=== PATIENT | female | born 1950 | race Caucasian/White ===

== ENCOUNTER 2019-09-04 09:43 | Day surgery (SDC) | payer MEDICARE, BC ==
[~2019-09-04] VITALS: Ht 165.1 cm; Wt 101.6 kg
[2019-09-04] VITALS (7 sets, daily range): BP systolic 112–140; BP diastolic 51–68
--- NOTE | 2019-09-04 06:38 | Anethesia Preoperative Eval ---
Anesthesia Pre-op PMH/ROS General Date of Evaluation: Sep 04, 2019 Time of Evaluation: 06:38 Anesthesiologist: poornima ASA Score: ASA 3 Mallampati Score Class I : Soft palate, uvula, fauces, pillars visible Class II: Soft palate, uvula, fauces visible Class III: Soft palate, base of uvula visible Class IV: Only hard plate visible Mallampati Classification: Class II Surgeon: carrie Diagnosis: anemia, vomiting Surgical Procedure: egd/colonoscopy Anesthesia History: none Family History: no anesthesia problems Allergies: Coded Allergies: No Known Allergies (Verified Allergy, Unknown, 02/07/10) Medications: see eMAR Patient NPO?: Yes Past Medical History Gastrointestinal/Genitourinary: Reports: GERD, other - uti Neurologic/Psychiatric: Reports: depression/anxiety Endocrine: Reports: DM HEENT: Reports: cataract (L), cataract (R) Musculoskeletal/Integumentary: Reports: other - charcot feet bilateral Anesthesia Pre-op Phys. Exam Physician Exam Last Vital Signs Date Time Temp Pulse Resp B/P (MAP) Pulse Ox O2 Delivery O2 Flow Rate FiO2 09/04/19 10:52 Room Air 09/04/19 10:49 97.5 76 18 140/61 100 Constitutional: NAD Neurologic: CN 2-12 intact Cardiovascular: RRR Respiratory: CTA Gastrointestinal: S/NT/ND Airway Exam Mallampati Score: Class II MO: limited Neck: flexible TMD: 2fb ROM: limited Teeth: other - dental implants upper/lower Anesthesia Pre-op A/P Labs Accucheck 96 Risk Assessment & Plan Assessment: asa3 Plan: mac Status Change Before Surgery: No Pre-Antibiotics Drug: Sandra Lin MD Sep 04, 2019 06:38
[~2019-09-04 09:43] MED LIST: Atropine Inj 1mg/10ml Syr IV PRN; DiphenhydrAMINE 50mg/ml Inj IVP PRN; LR 1000ml 1,000 ML IVLG SCH; Midazolam 2mg/2ml Inj IVP PRN; fentaNYL 100 mcg/2 mL IV PRN
[2019-09-04] MEDS ORDERED: LR 1000ml 1,000 ML IVLG SCH (10:24)
[2019-09-04] MEDS ORDERED: METFORMIN HCL750 MG ORAL (10:41)
[2019-09-04] MEDS ORDERED: METOPROLOL TART25 MG ORAL (10:41)
[2019-09-04] MEDS ORDERED: ROPINIROLE HCL1 MG PO (10:41)
[2019-09-04] MEDS ORDERED: CYMBALTA60 MG ORAL (10:41)
[2019-09-04] MEDS ORDERED: JANUVIA100 MG ORAL (10:41)
[2019-09-04] MEDS ORDERED: CRESTOR40 MG ORAL (10:41)
[2019-09-04] MEDS ORDERED: ROPINIROLE HC0.25 MG PO (10:41)
[2019-09-04] MEDS ORDERED: VESICARE5 MG ORAL (10:41)
[2019-09-04] MEDS ORDERED: OMEPRAZOLE40 M1 ORAL (10:41)
[2019-09-04] MEDS ORDERED: CYMBALTA30 MG ORAL (10:41)
[2019-09-04] MEDS ORDERED: MYRBETRIQ50 MG PO (10:41)
[2019-09-04] MEDS ORDERED: TRAMADOL HCL50 MG ORAL (10:41)
--- NOTE | 2019-09-04 11:00 | NUR ---
Patient claimed " had about total of 8 oz of water since midnight ". Michoacano Knight RN in the GI lab was notified.
[2019-09-04] MEDS ORDERED: Lidocaine 1% MPF 10mg/ml 5ml ONE (11:30)
[2019-09-04] MEDS ORDERED: Propofol 200mg/20ml IV ONE (11:30)
[2019-09-04] MEDS ORDERED: LR 1000ml ONE (11:30)
--- NOTE | 2019-09-04 11:40 | Short Stay Surgery H&P ---
History of Present Illness History of Present Illness Chief Complaint see typed H&P HPI Margarita Dobbs is a 68 year old female who was admitted on for Anemia Patient History Allergies: Coded Allergies: No Known Allergies (Verified Allergy, Unknown, 02/07/10) Medication History Scheduled Duloxetine Hcl* (Cymbalta*), 90 MG ORAL DAILY, (Reported) Duloxetine Hcl* (Cymbalta*), 90 MG ORAL DAILY, (Reported) Metformin Hcl (Metformin Hcl Er), 750 MG ORAL BID, (Reported) Metoprolol Tartrate* (Metoprolol Tartrate*), 25 MG ORAL EVERY 12 HOURS, ( Reported) Mirabegron (Myrbetriq), 50 MG PO da, (Reported) Omeprazole (Omeprazole), 40 MG ORAL BID, (Reported) Ropinirole Hcl* (Ropinirole Hcl*), 0.25 MG PO TID, (Reported) Ropinirole Hcl* (Ropinirole Hcl*), 1 MG PO DA, (Reported) Rosuvastatin Calcium* (Crestor*), 90 MG ORAL DAILY, (Reported) Sitagliptin (Januvia), 100 MG ORAL DAILY, (Reported) Solifenacin Succinate* (Vesicare*), 5 MG ORAL DAILY, (Reported) Scheduled PRN Tramadol Hcl* (Ultram*), 50 MG ORAL BID PRN for For Pain, (Reported) Physical Exam Vital Signs Last Vital Signs Date Time Temp Pulse Resp B/P (MAP) Pulse Ox O2 Delivery O2 Flow Rate FiO2 09/04/19 10:52 Room Air 09/04/19 10:49 97.5 76 18 140/61 100 Plan Attestation Are the patient's medical conditions optimized for surgery? Sony Pond MD Sep 04, 2019 11:40
--- NOTE | 2019-09-04 11:42 | Pre-Procedure Note/Attestation ---
Pre-Procedure Note/Attestation Complete Prior to Procedure Planned Procedure: not applicable Procedure Narrative: Heme (+) stools Indications for Procedure Pre-Operative Diagnosis: EGD/Colon Attestation I attest that I discussed the nature of the procedure; its benefits; risks and complications; and alternatives (and the risks and benefits of such alternatives ), prior to the procedure, with the patient (or the patient's legal airport representative). I attest that, if there was a reasonable possibility of needing a blood transfusion, the patient (or the patient's legal airport representative) was given the [facility] standardized written summary, pursuant to the Alfie Candace Blood Safety Act ([place] Health and Safety Code # 1645, as amended). I attest that I re-evaluated the patient just prior to the surgery and that there has been no change in the patient's H&P, except as documented below: Sony Pond MD Sep 04, 2019 11:42
--- NOTE | 2019-09-04 13:09 | Immediate Post-Op Evaluation ---
Immediate Post-Op Evalulation Immediate Post-Op Evalulation Procedure: egd/colonoscopy w/bx Date of Evaluation: Sep 04, 2019 Time of Evaluation: 12:49 IV Fluids: 500ml lr Blood Products: none Estimated Blood Loss: negligible Blood Pressure Systolic: 136 Blood Pressure Diastolic: 59 Pulse Rate: 74 Respiratory Rate: 18 O2 Sat by Pulse Oximetry: 100 Temperature (Fahrenheit): 97.5 Pain Score (1-10): 0 Nausea: No Vomiting: No Complications none Patient Status: awake, reacts, patent Hydration Status: adequate Drug: Sandra Lin MD Sep 04, 2019 13:09
--- NOTE | 2019-09-04 13:10 | 48 Hour Post Anesthesia Eval ---
Post Anesthesia Evaluation Procedure: egd/colonoscopy w/bx Date of Evaluation: Sep 04, 2019 Time of Evaluation: 12:51 Blood Pressure Systolic: 140 0: 61 Pulse Rate: 71 Respiratory Rate: 18 Temperature (Fahrenheit): 97.5 O2 Sat by Pulse Oximetry: 100 Airway: patent Nausea: No Vomiting: No Pain Intensity: 0 Hydration Status: adequate Cardiopulmonary Status: stable Mental Status/LOC: patient returned to baseline Post-Anesthesia Complications: none Follow-up care needed: N/A Sandra Calderon MD Sep 04, 2019 13:10
[2019-09-04] MEDS ORDERED: TRESIBA100 UNIT/1 SQ (14:15)
[2019-09-04] MEDS ORDERED: NOVOLOG100 UNIT/4 SQ (14:18)
--- NOTE | 2019-09-05 12:00 | Operative Note - Dictated ---
DATE OF OPERATION: 09/04/2019 GASTROENTEROLOGY PROCEDURE REPORT PROCEDURE: Upper gastrointestinal endoscopy with biopsy as well as colonoscopy. SURGEON: Sony Pond M.D. ANESTHESIA: Please see the separate anesthesiologist notes for details. PRE-ENDOSCOPIC DIAGNOSIS: Heme-positive stools. POST-ENDOSCOPIC DIAGNOSES: 1. Mild gastroesophageal reflux disease with reflux-related erosions in the lower esophagus. 2. Status post sleeve gastrectomy procedure is anticipated. 3. Mild erythema of the antrum and remaining stomach, status post biopsy. 4. Normal terminal ileum about 5 cm. 5. Suboptimal colonic preparation, but visualization was adequate to rule out large mass lesions. 6. Mild internal hemorrhoids. 7. No colonic polyps identified. DESCRIPTION OF PROCEDURE: The procedure, its risks, indications, alternatives, and possible complications were explained to the patient and informed consent was obtained. The patient was then sedated in the left lateral decubitus position. A diagnostic upper endoscope was introduced through the oropharynx and advanced to the duodenum without difficulty. The endoscope was then gradually withdrawn. Then, the mucosa examined carefully. The endoscope was then removed. The colonoscope was introduced into the rectum and advanced to the terminal ileum without difficulty. The colonoscope was then gradually withdrawn and the mucosa examined carefully. Examination was concluded with the retroflex view of the rectum. The colonoscope was removed and the patient was sent to recovery in good condition. FINDINGS: As listed above. ASSESSMENT: There were no ulcers or malignancies identified on this examination. in the lower or upper gastrointestinal tract. The heme-positive stools may potentially be either due to hemorrhage or due to gastroesophageal reflux. The patient will be seen and followup and a repeat stool occult blood can be done as an outpatient. In the meantime, the patient should be placed on reflux precautions and acid blockade regimen. RECOMMENDATIONS: 1. Continue omeprazole 40 mg p.o. daily. 2. Reflux precautions. 3. Follow up biopsy results. 4. Outpatient followup. Thank you for asking me to participate in the care of this patient. Sony Pond M.D. DR: WINIFRED JOB#: [id number] CC: Dajuan Mirza M.D.
[2019-09-08] MEDS ORDERED: CEPHALEXIN500 MG ORAL (18:20)
[2019-09-08] MEDS ORDERED: DOXYCYCLINE MO100 MG ORAL (18:20)
== END 2019-09-04 13:55 | disposition home or self-care (01) ==
LOC: GAS 09:43
DX: K21.9 Gastro-esophageal reflux disease without esophagitis (principal); Z98.84 Bariatric surgery status; K64.8 Other hemorrhoids; D64.9 Anemia, unspecified; Z79.899 Other long term (current) drug therapy; Z79.84 Long term (current) use of oral hypoglycemic drugs; E11.9 Type 2 diabetes mellitus without complications; F32.9 Major depressive disorder, single episode, unspecified; F41.9 Anxiety disorder, unspecified; K29.50 Unspecified chronic gastritis without bleeding
CPT/HCPCS: 43239; 45378; 82962; J2704; 94003; 94150